=== PATIENT | female | born 2000 | race Caucasian/White ===

== ENCOUNTER 2020-04-08 14:07 | Day surgery (SDC) | payer OTHER ==
[2020-04-06 13:08] VITALS: BMI 39.6
[2020-04-08] MEDS ORDERED: MIDAZOLAM HCL 2 MG/2 ML SINGLE DOSE VIAL ONE ×2 (15:25→15:42)
[2020-04-08] MEDS ORDERED: ROPIVACAINE HCL 0.5% 30ML VIAL ONE (15:26)
[2020-04-08] MEDS ORDERED: fentaNYL CITRATE 250 MCG/5 ML VIAL ONE (15:42)
[2020-04-08] MEDS ORDERED: oxyCODONE HCL 5 MG TABLET PO PRN ×2 (15:58→19:01)
[2020-04-08] MEDS ORDERED: ONDANSETRON 4 MG/2 ML VIAL IVPUSH PRN (15:58)
[2020-04-08] MEDS ORDERED: LACTATED RINGERS SOLUTION 1,000 ML IV SCH (16:00)
[2020-04-08] MEDS ORDERED: PROPOFOL 20 ML ONE ×3 (16:28→17:59)
[2020-04-08] MEDS ORDERED: BUPIVACAINE HCL/PF 0.25% (2.5MG/ML) 10 ML VIAL IJ ONE (18:14)
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
[2020-04-08] MEDS ORDERED: ACETAMINOPHEN INJECTION 100 ML IVPB ONE (18:44)
[2020-04-08] MEDS ORDERED: ACETAMINOPHEN 1000 MG/100 ML VIAL (NON FORMULARY) IVPB ONE (18:45)
[2020-04-08 18:58] VITALS: TEMP 98.8
[2020-04-08 20:11] VITALS: BP 132/80; PULSE 86
--- NOTE | 2020-04-09 00:01 | OP ---
DATE OF OPERATION: 04/08/2020 PREOPERATIVE DIAGNOSES: 1. Right comminuted intraarticular displaced distal radius fracture. 2. Right proximal scaphoid fracture. POSTOPERATIVE DIAGNOSES: 1. Right comminuted intraarticular displaced distal radius fracture. 2. Right proximal scaphoid fracture. OPERATIVE PROCEDURE: 1. Open reduction and internal fixation of right comminuted intraarticular distal radius fracture with internal fixation of 3 or more fragments. 2. Right brachioradialis tenotomy at the wrist. 3. Right scaphoid fracture open reduction and internal fixation. SURGEON: Abdulkadir Damon MD [employer] SUPERVISOR: NAHOMI Mata ANESTHESIA: General. COMPLICATIONS: None. ESTIMATED BLOOD LOSS: Minimal. INDICATION FOR PROCEDURE: A 20-year-old female with the above findings indicated for operative treatment. The risks, benefits and alternatives were discussed with the patient at length and proper informed consent was obtained. PROCEDURE: After proper identification of the patient and correct operative site, the patient was brought to the operating room and placed supine on the table. Prominences were well padded. Of note, prior to the procedure, she did have some tingling and numbness on the dorsal aspect of the thumb which was probably splint or contusion related. Once she was in the operating room, general anesthesia was initiated and intravenous antibiotics given. Timeout procedure was performed. The right upper extremity was prepped and draped in the usual sterile fashion. A well-padded tourniquet was placed over the sterile prep. Esmarch bandage was used to exsanguinate the right upper extremity. Tourniquet was inflated to 250 mmHg. Incision was made over the flexor carpi radialis tendon and incision was taken sharply through the skin with blunt and sharp dissection through the subcutaneous tissues. Flexor carpi radialis, along with the contents of the carpal canal, were bluntly and gently retracted in an ulnarward direction for the remainder of the procedure. Pronator quadratus was divided and elevated off the distal radius. A comminuted, displaced distal radius fracture was found with intraarticular extension to the radial styloid. As the radial styloid was a separate fragment and was significantly displaced, a subperiosteal brachioradialis tenotomy was necessary to mobilize this fragment. Once this was accomplished, the fracture was able to be reduced and it was held with an Arthrex distal radius locking plate with distal locking screws and proximal bicortical screws. This provided secure, stable fixation of the fracture and satisfactory alignment confirmed visually, as well as radiographically in multiple planes. Scapholunate interval was stressed and found to be stable. Distal radioulnar joint was found to be stable. The wound was irrigated and repaired in layers using 4-0 Vicryl and 4-0 Monocryl suture, as well as Steri-Strips. A second incision was made dorsally over the wrist. Incision was taken sharply through the skin with sharp and blunt dissection of the subcutaneous tissues. Extensor tendons were retracted and the capsule was opened just at the proximal pole of the scaphoid. Using live fluoroscopy, a guidewire was placed through the proximal pole of the scaphoid across the fracture site, securing central positioning within the scaphoid and securing the fragment. Alignment was satisfactory. Scapholunate ligament was intact. Once the guidewire was placed and measured, it was overdrilled and a size 16 length micro-Arthrex headless cannulated compression screw was placed to the appropriate depth and sizing. This provided secure, stable, satisfactory fixation and proper position confirmed radiographically. The wound was irrigated and repaired, including the capsule, with a 4-0 Vicryl and 4-0 Monocryl suture. Steri-Strips and sterile dressings were applied. A splint was placed. The patient was reversed from anesthesia and brought to the recovery room in stable condition. She tolerated the procedure well. Sukh Mcintyre, the assistant statistician, was integral throughout the procedure. The procedure could not have been performed without a skilled operative assistant statistician. He was integral in holding reduction of the fracture while hardware was placed and this could not have been done without a skilled operative assistant statistician. ABDULKADIR DAMON M.D. [id number]
== END 2020-04-08 20:57 | disposition home or self-care (01) ==
LOC: FASU 14:07
PROVIDERS: ATTEND Orthopaedic Surgery Hand Surgery
PROC: 0PSM04Z Reposition Right Carpal with Internal Fixation Device, Open Approach (ICD-10-PCS; 2020-04-08)
PROC: 0LN50ZZ Release Right Lower Arm and Wrist Tendon, Open Approach (ICD-10-PCS; 2020-04-08)
PROC: 0PSH04Z Reposition Right Radius with Internal Fixation Device, Open Approach (ICD-10-PCS; principal; 2020-04-08 16:47)
DX: S52.501A Unspecified fracture of the lower end of right radius, initial encounter for closed fracture (principal); S62.031A Displaced fracture of proximal third of navicular [scaphoid] bone of right wrist, initial encounter for closed fracture; X58.XXXA Exposure to other specified factors, initial encounter; Y93.9 Activity, unspecified; Y92.9 Unspecified place or not applicable
CPT/HCPCS: 25290; 25609; 25628; C1713; 73110-TC-RT-FY; 84703; 94760; J0131